=== PATIENT | male | born 1950 | race Caucasian/White ===

== ENCOUNTER → 2017-07-05 | Outpatient (REF) | payer OTHER | LOC: M SMT 12:54 | DX: R97.20 Elevated prostate specific antigen [PSA] (principal) ==

== ENCOUNTER → 2018-09-11 | Outpatient (REF) | payer OTHER | LOC: M LAB LCGH 15:39 | PROVIDERS: ATTEND Surgery | DX: Z00.00 Encounter for general adult medical examination without abnormal findings (principal) ==

== ENCOUNTER 2023-09-23 17:50 | Emergency (ER) | payer OTHER, SELFPAY ==
[~2023-09-23] VITALS: Ht 165.1 cm; Wt 90.8 kg
[2023-09-23 17:50] VITALS: TEMP 98.7
[2023-09-23] MEDS ORDERED: PRAV20TA2 (18:02)
[2023-09-23] MEDS ORDERED: NAPR-885 (18:02)
[2023-09-23] MEDS ORDERED: LOSA50TA5 (18:02)
[2023-09-23 19:06] LABS: BASO % 0.4 % (0.0-1.0); EOS # 0.2 10^3/uL (0.0-0.5); EOS % 2.2 % (0.0-3.0); HEMATOCRIT 46.9 % (42.0-52.0); HEMOGLOBIN 16.1 g/dl (13.5-17.5); LYMPH # 1.5 10^3/uL (1.5-5.0); LYMPH % 21.9 % (24.0-44.0); MEAN CORPUSCULAR HEMOGLOBIN 31.2 pg (27.0-33.0); MEAN CORPUSCULAR HGB CONC 34.3 g/dl (32.0-36.5); MEAN CORPUSCULAR VOLUME 90.9 fl (80.0-96.0); MONO # 0.7 10^3/uL (0.0-0.8); MONO % 9.8 % (2.0-8.0); NEUTROPHILS # 4.4 10^3/uL (1.5-8.5); NEUTROPHILS % 65.4 % (36.0-66.0); PLATELET COUNT, AUTOMATED 296 10^3/uL (150-450); RED BLOOD COUNT 5.16 10^6/uL (4.30-6.10); WHITE BLOOD COUNT 6.7 10^3/uL (4.0-10.0)
[2023-09-23 19:36] LABS: BLOOD UREA NITROGEN 23 MG/DL (9-23); CALCIUM LEVEL 9.5 MG/DL (8.3-10.6); CARBON DIOXIDE LEVEL 30 MMOL/L (20-31); CHLORIDE LEVEL 104 MMOL/L (98-107); CK-MB VALUE MASS 12.8 NG/ML (<3.6); CPK CREATINE PHOSPHOKINASE 539 U/L (46-171); CREATININE FOR GFR 0.68 MG/DL (0.70-1.30); GLOMERULAR FILTRATION RATE > 60.0 (>42); GLUCOSE, FASTING 103 MG/DL (74-106); MAGNESIUM LEVEL 2.3 MG/DL (1.8-2.4); MB/CK RELATIVE INDEX 2.37 (< OR =4); POTASSIUM SERUM 4.6 MMOL/L (3.5-5.1); SODIUM LEVEL 140 MMOL/L (136-145)
[2023-09-23 19:38] LABS: THYROID STIMULATING HORMONE 3.033 uIU/ML (0.55-4.78)
[2023-09-23] MEDS ORDERED: ISOVUE-370 76% 100ML VIAL As Ordered ONE (21:02)
[2023-09-23] MEDS: NS 1,000 ML IV ONE (21:23)
[2023-09-23 21:59] LABS: CK-MB VALUE MASS 11.1 NG/ML (<3.6)
[2023-09-23 22:00] LABS: MB/CK RELATIVE INDEX 2.3 (< OR =4)
[2023-09-23 22:45] VITALS: BP 135/77
[2023-09-23 23:00] VITALS: O2SAT 96
== END 2023-09-23 23:13 | disposition home or self-care (01) ==
LOC: M ED 17:50
DX: I95.1 Orthostatic hypotension (principal); I65.23 Occlusion and stenosis of bilateral carotid arteries; I45.10 Unspecified right bundle-branch block; I10 Essential (primary) hypertension; F12.10 Cannabis abuse, uncomplicated; F10.10 Alcohol abuse, uncomplicated; Z79.811 Long term (current) use of aromatase inhibitors; Z79.83 Long term (current) use of bisphosphonates; Z79.1 Long term (current) use of non-steroidal anti-inflammatories (NSAID)
CPT/HCPCS: 70450; 70496; 70498; 80048; 82550; 82553; 83735; 84443; 84484; 85025; 93005; 96360; 96361; 99284; Q9967